=== PATIENT | male | born 1975 | race Caucasian/White ===

== ENCOUNTER 2017-01-13 16:30 | Emergency (ER) | payer OTHER, SELFPAY ==
[2017-01-13] MEDS ORDERED: LIDOCAINE VISCOUS 2% SOLN 15ML UDC As Ordered ONE (17:19)
[2017-01-13] MEDS ORDERED: NORCO, ANEXSIA 5/325MG TABLET (HYDROcodone/ACETAMINOPHEN) As Ordered ONE ×2 (17:19→17:27)
[2017-01-13] MEDS ORDERED: CLINDAMYCIN 150 MG CAP As Ordered ONE (17:19)
--- NOTE | 2017-01-13 17:33 | EDDOCDS ---
Physician Documentation [facility] Name: Fitz Chacon Age: 41 yrs Sex: Male : 1975 Arrival Date: 01/13/2017 Time: 16:30 Bed Triage 1 Private MD: NO PRIMARY PHYSICIAN, . Disposition: 01/13/17 17:14 Discharged to Home/Self Care. Impression: Cellulitis and abscess of mouth - dental abscess #19 tooth. - Condition is Stable. - Discharge Instructions: Dental Pain. - Prescriptions for Clindamycin HCl 300 mg Oral Capsule - take 1 capsule by ORAL route every 6 hours; 40 capsule. [place] 5- 325 mg Oral Tablet - take 1 tablet by ORAL route every 6 hours As needed MDD: 4 tabs; 20 tablet. magic mouthwash Mucous Membrane Solution - as directed 5 milliliters by ORAL route 3-4 times daily As needed gargle, swish, spit. Maalox, Liquid Benadryl, Viscous Lidocaine. 1:1:1; 237 milliliter. - Medication Reconciliation, Local Pharmacy Hours form. - Follow up: Emergency Department; When: As needed; Reason: Worsening of conditions. [facility]; When: Call to arrange an appointment; Reason: Recheck today's complaints, Continuance of care, To establish care. Follow up: [facility]; When: Call to arrange an appointment; Reason: Recheck today's complaints, Continuance of care, To establish care. - Problem is new. - Symptoms are unchanged. Historical: - Allergies: No known drug Allergies; - Home Meds: 1. ibuprofen 200 mg Oral cap 4 caps every 8 hours (Last dose: 01/13/2017 14:00) - PMHx: none; - PSHx: Hernia repair- Left inguinal; Tonsillectomy; - Social history: Smoking status: Patient uses tobacco products, heavy tobacco smoker. No barriers to communication noted, The patient speaks fluent Malagasy. - Family history: Not pertinent. - : The pt / caregiver states he / she is not on anticoagulants. Home medication list is obtained from the patient. - Exposure Risk Screening:: None identified. Vital Signs: 01/13 16:31 BP 113 / 67; Pulse 76; Resp 18 S; Temp 97.6(O); Pulse Ox 95% on R/A; Weight 88.45 kg / gr2 195 lbs (R); Height 6 ft. 0 in. (182.88 cm) (R); Pain 5/10; 16:31 Body Mass Index 26.45 (88.45 kg, 182.88 cm) gr2 MDM: 17:07 Financial registration complete. kf3 17:08 [facility] Payment Agreement was scanned into [employer] and attached to record. [id number] 17:12 Lidocaine Viscous Liquid 2 % 15 ml Mucous Membrane in affected area once; give to pt to dt4 take home. thank you. ordered. 17:12 Clindamycin 300 mg PO once ordered. dt4 17:12 HYDROcodone-acetaminophen 5 mg-325 mg 1 tabs PO once; give to pt to take home, thank dt4 you. ordered. 17:28 HYDROcodone-acetaminophen 5 mg-325 mg 1 tabs PO once ordered. dt4 Administered Medications: 17:29 Drug: HYDROcodone-acetaminophen 1 tabs [hydrocodone 5 mg-acetaminophen 325 mg tablet (1 srm tabs)] Route: PO; 17:30 Drug: Lidocaine Viscous 15 ml [Lidocaine Viscous 2 % mucosal solution (15 mL)] Route: srm Mucous Membrane; Site: affected area; 17:30 Drug: Clindamycin 300 mg [clindamycin 150 mg capsule (2 caps)] Route: PO; srm 17:30 Drug: HYDROcodone-acetaminophen 1 tabs [hydrocodone 5 mg-acetaminophen 325 mg tablet (1 srm tabs)] Route: PO; Signatures: Gisella Weinberg RN RN kpSkip Gallardo, Reg Reg kf3 June Singleton RN RN cjh Tschudi, Diane, PA-C PASadia dt4 Clara Rogers, Reg Reg ks16 Nelida Barakat RN srm The chart was reviewed and I authenticate all verbal orders and agree with the evaluation and treatment provided.Attachments: 17:08 [facility] Payment Agreement [email or web address] [facility]
--- NOTE | 2017-01-13 17:33 | EDDOCDS ---
Nurse's Notes [facility] Name: Fitz Chacon Age: 41 yrs Sex: Male : 1975 Arrival Date: 01/13/2017 Time: 16:30 Bed Triage 1 Private MD: NO PRIMARY PHYSICIAN, . Diagnosis: Cellulitis and abscess of mouth-dental abscess #19 tooth Presentation: 01/13 16:44 Presenting complaint: Patient states: lower dental pain left with facial swelling x 2 kpj dasy. Adult Sepsis Screening: The patient does not have new or worsening altered mentation. Patient's respiratory rate is less than 22. Systolic blood pressure is greater than 100. Patient has a qSOFA score of 0- Negative Sepsis Screen. Suicide/Homicide risk assessment- the patient denies having any suicidal and/or homicidal ideations and does not present with any other emotional, behavioral or mental health complaints. Status: Patient is not a rv servicer or dependent. Transition of care: patient was not received from another setting of care. 16:44 Acuity: NOBLE Level 4 [facility] 16:44 Method Of Arrival: Walkin/Carried/Asstd [facility] Triage Assessment: 16:47 General: Appears in no apparent distress, Behavior is appropriate for age, listless. [facility] Pain: Location: lower left third molar Pain currently is 5 out of 10 on a pain scale. Pt Declines HIV testing. Neurological: Level of Consciousness is awake, alert, Oriented to person, place, time. EENT: Poor dentition noted. left facial swelling. Respiratory: Airway is patent Respiratory effort is even, unlabored. Derm: Skin is pink, warm & dry. Historical: - Allergies: No known drug Allergies; - Home Meds: 1. ibuprofen 200 mg Oral cap 4 caps every 8 hours (Last dose: 01/13/2017 14:00) - PMHx: none; - PSHx: Hernia repair- Left inguinal; Tonsillectomy; - Social history: Smoking status: Patient uses tobacco products, heavy tobacco smoker. No barriers to communication noted, The patient speaks fluent Estonian. - Family history: Not pertinent. - : The pt / caregiver states he / she is not on anticoagulants. Home medication list is obtained from the patient. - Exposure Risk Screening:: None identified. Screenin:29 Screening information is obtained from the patient. Fall risk: No risks identified. [facility] Assistance ADL's: requires no assistance with activities of daily living. Abuse/DV Screen: The patient / caregiver reports he/she is: not in a situation that causes fear, pain or injury. Nutritional screening: No deficits noted. Advance Directives: There is no active DNR order. home support is adequate. Assessment: 17:29 General: Appears in no apparent distress, comfortable, Behavior is appropriate for age, cjh cooperative. Pain: Location: mouth and lower left third molar Pain currently is 8 out of 10 on a pain scale. Respiratory: Airway is patent Respiratory effort is even, unlabored, Respiratory pattern is regular, symmetrical. Derm: Skin is pink, warm & dry. Vital Signs: 16:31 BP 113 / 67; Pulse 76; Resp 18 S; Temp 97.6(O); Pulse Ox 95% on R/A; Weight 88.45 kg gr2 (R); Height 6 ft. 0 in. (182.88 cm) (R); Pain 5/10; 16:31 Body Mass Index 26.45 (88.45 kg, 182.88 cm) gr2 Vitals: 16:31 Log In Time: January 13, 2017 at 16:31. gr2 ED Course: 16:31 Patient visited by Jalen Coker. gr2 16:31 NO PRIMARY PHYSICIAN, . is Private Physician. gr2 16:31 Patient moved to Waiting gr2 16:33 Patient visited by Jalen Coker. gr2 16:33 Patient moved to Pre RCE gr2 16:45 Triage Initiated [facility] 16:49 Patient moved to Triage 1 [facility] 17:01 [facility] dt4 17:01 Keyur Holt MD is Attending Physician. dt4 17:01 Patient visited by Graciela Eagle PA-C. dt4 17:08 REPLACED BY [facility] Payment Agreement was scanned into [employer] and attached to record. [id number] 17:13 [facility] is Referral Physician. dt4 17:13 [facility] is Referral Physician. dt4 17:29 The patient / caregiver is instructed regarding the plan of care and ED course. cjh 17:29 No IV's were initiated during this patient's visit. No procedures done that require [facility] assistance. Administered Medications: 17:29 Drug: HYDROcodone-acetaminophen 1 tabs [hydrocodone 5 mg-acetaminophen 325 mg tablet (1 srm tabs)] Route: PO; 17:30 Drug: Lidocaine Viscous 15 ml [Lidocaine Viscous 2 % mucosal solution (15 mL)] Route: srm Mucous Membrane; Site: affected area; 17:30 Drug: Clindamycin 300 mg [clindamycin 150 mg capsule (2 caps)] Route: PO; srm 17:30 Drug: HYDROcodone-acetaminophen 1 tabs [hydrocodone 5 mg-acetaminophen 325 mg tablet (1 srm tabs)] Route: PO; Order Results: There are currently no results for this order. Outcome: 17:14 Discharge ordered by Provider. dt4 17:29 Discharge Assessment: Patient awake, alert and oriented x 3. No cognitive and/or [facility] functional deficits noted. Patient verbalized understanding of disposition instructions. patient administered narcotics - no. The following High Risk Discharge criteria are identified: None. Discharged to home ambulatory, with significant other. Condition: good Condition: stable Condition: improved. Discharge instructions given to patient, Instructed on discharge instructions, follow up and referral plans. medication usage, no driving heavy equipment, no drinking with medication, Demonstrated understanding of instructions, medications, Pt was receptive of discharge instructions/ teaching. Prescriptions given X 3. No special radiology studies were completed. Property :Personal belongings accompany Pt. 17:33 Patient left the ED. [facility] Signatures: Gisella Weinberg RN RN Nelida Mace RN RN [facility] June Singleton RN RN [facility] Jalen Coker gr2 Graciela Eagle PA-C PA-C dt4 Clara Rogers, Reg Reg ks16 MTDD
--- NOTE | 2017-01-15 18:33 | EDDOCDS ---
Physician Documentation [facility] Name: Fitz Chacon Age: 41 yrs Sex: Male : 1975 Arrival Date: 01/13/2017 Time: 16:30 Bed Triage 1 Private MD: NO PRIMARY PHYSICIAN, . Disposition: 01/13/17 17:14 Discharged to Home/Self Care. Impression: Cellulitis and abscess of mouth - dental abscess #19 tooth. - Condition is Stable. - Discharge Instructions: Dental Pain. - Prescriptions for Clindamycin HCl 300 mg Oral Capsule - take 1 capsule by ORAL route every 6 hours; 40 capsule. [place] 5- 325 mg Oral Tablet - take 1 tablet by ORAL route every 6 hours As needed MDD: 4 tabs; 20 tablet. magic mouthwash Mucous Membrane Solution - as directed 5 milliliters by ORAL route 3-4 times daily As needed gargle, swish, spit. Maalox, Liquid Benadryl, Viscous Lidocaine. 1:1:1; 237 milliliter. - Medication Reconciliation, Local Pharmacy Hours form. - Follow up: Emergency Department; When: As needed; Reason: Worsening of conditions. [facility]: [facility]; When: Call to arrange an appointment; Reason: Recheck today's complaints, Continuance of care, To establish care. Follow up: [facility]; When: Call to arrange an appointment; Reason: Recheck today's complaints, Continuance of care, To establish care. - Problem is new. - Symptoms are unchanged. Historical: - Allergies: No known drug Allergies; - Home Meds: 1. ibuprofen 200 mg Oral cap 4 caps every 8 hours (Last dose: 01/13/2017 14:00) - PMHx: none; - PSHx: Hernia repair- Left inguinal; Tonsillectomy; - Social history: Smoking status: Patient uses tobacco products, heavy tobacco smoker. No barriers to communication noted, The patient speaks fluent Cook Islander. - Family history: Not pertinent. - : The pt / caregiver states he / she is not on anticoagulants. Home medication list is obtained from the patient. - Exposure Risk Screening:: None identified. Vital Signs: 01/13 16:31 BP 113 / 67; Pulse 76; Resp 18 S; Temp 97.6(O); Pulse Ox 95% on R/A; Weight 88.45 kg / gr2 195 lbs (R); Height 6 ft. 0 in. (182.88 cm) (R); Pain 5/10; 16:31 Body Mass Index 26.45 (88.45 kg, 182.88 cm) gr2 MDM: 17:07 Financial registration complete. kf3 17:08 [facility] Payment Agreement was scanned into [employer] and attached to record. ks16 17:12 Lidocaine Viscous Liquid 2 % 15 ml Mucous Membrane in affected area once; give to pt to dt4 take home. thank you. ordered. 17:12 Clindamycin 300 mg PO once ordered. dt4 17:12 HYDROcodone-acetaminophen 5 mg-325 mg 1 tabs PO once; give to pt to take home, thank dt4 you. ordered. 17:28 HYDROcodone-acetaminophen 5 mg-325 mg 1 tabs PO once ordered. dt4 01/14 17:38 T-Sheet-- Draft Copy was scanned into [employer] and attached to record. klr Administered Medications: 01/13 17:29 Drug: HYDROcodone-acetaminophen 1 tabs [hydrocodone 5 mg-acetaminophen 325 mg tablet (1 srm tabs)] Route: PO; 17:30 Drug: Lidocaine Viscous 15 ml [Lidocaine Viscous 2 % mucosal solution (15 mL)] Route: srm Mucous Membrane; Site: affected area; 17:30 Drug: Clindamycin 300 mg [clindamycin 150 mg capsule (2 caps)] Route: PO; srm 17:30 Drug: HYDROcodone-acetaminophen 1 tabs [hydrocodone 5 mg-acetaminophen 325 mg tablet (1 srm tabs)] Route: PO; Signatures: Gisella Weinberg RN RN kpj Fiddler, Kris, Reg Reg kf3 June Singleton RN RN [facility] Graciela Eagle, PASadia PAChrisC dt4 Clara Rogers, Reg Reg ks16 Ofe Chatman klr Nelida Barakat RN [facility] The chart was reviewed and I authenticate all verbal orders and agree with the evaluation and treatment provided.Attachments: 17:08 [facility] Payment Agreement ks16 01/14 17:38 T-Sheet-- Draft Copy klr Chart Complete MTDD
--- NOTE | 2017-01-15 18:33 | EDDOCDS ---
Physician Documentation [facility] Name: Fitz Chacon Age: 41 yrs Sex: Male : 1975 Arrival Date: 01/13/2017 Time: 16:30 Bed Triage 1 Private MD: NO PRIMARY PHYSICIAN, . Disposition: 01/13/17 17:14 Discharged to Home/Self Care. Impression: Cellulitis and abscess of mouth - dental abscess #19 tooth. - Condition is Stable. - Discharge Instructions: Dental Pain. - Prescriptions for Clindamycin HCl 300 mg Oral Capsule - take 1 capsule by ORAL route every 6 hours; 40 capsule. [place] 5- 325 mg Oral Tablet - take 1 tablet by ORAL route every 6 hours As needed MDD: 4 tabs; 20 tablet. magic mouthwash Mucous Membrane Solution - as directed 5 milliliters by ORAL route 3-4 times daily As needed gargle, swish, spit. Maalox, Liquid Benadryl, Viscous Lidocaine. 1:1:1; 237 milliliter. - Medication Reconciliation, Local Pharmacy Hours form. - Follow up: Emergency Department; When: As needed; Reason: Worsening of conditions. Follow up: [facility]; When: Call to arrange an appointment; Reason: Recheck today's complaints, Continuance of care, To establish care. Follow up: [facility]; When: Call to arrange an appointment; Reason: Recheck today's complaints, Continuance of care, To establish care. - Problem is new. - Symptoms are unchanged. Historical: - Allergies: No known drug Allergies; - Home Meds: 1. ibuprofen 200 mg Oral cap 4 caps every 8 hours (Last dose: 01/13/2017 14:00) - PMHx: none; - PSHx: Hernia repair- Left inguinal; Tonsillectomy; - Social history: Smoking status: Patient uses tobacco products, heavy tobacco smoker. No barriers to communication noted, The patient speaks fluent Tuvaluan. - Family history: Not pertinent. - : The pt / caregiver states he / she is not on anticoagulants. Home medication list is obtained from the patient. - Exposure Risk Screening:: None identified. Vital Signs: 01/13 16:31 BP 113 / 67; Pulse 76; Resp 18 S; Temp 97.6(O); Pulse Ox 95% on R/A; Weight 88.45 kg / gr2 195 lbs (R); Height 6 ft. 0 in. (182.88 cm) (R); Pain 5/10; 16:31 Body Mass Index 26.45 (88.45 kg, 182.88 cm) gr2 MDM: 17:07 Financial registration complete. kf3 17:08 [facility] Payment Agreement was scanned into [employer] and attached to record. ks16 17:12 Lidocaine Viscous Liquid 2 % 15 ml Mucous Membrane in affected area once; give to pt to dt4 take home. thank you. ordered. 17:12 Clindamycin 300 mg PO once ordered. dt4 17:12 HYDROcodone-acetaminophen 5 mg-325 mg 1 tabs PO once; give to pt to take home, thank dt4 you. ordered. 17:28 HYDROcodone-acetaminophen 5 mg-325 mg 1 tabs PO once ordered. dt4 01/14 17:38 T-Sheet-- Draft Copy was scanned into [employer] and attached to record. klr Administered Medications: 01/13 17:29 Drug: HYDROcodone-acetaminophen 1 tabs [hydrocodone 5 mg-acetaminophen 325 mg tablet (1 srm tabs)] Route: PO; 17:30 Drug: Lidocaine Viscous 15 ml [Lidocaine Viscous 2 % mucosal solution (15 mL)] Route: srm Mucous Membrane; Site: affected area; 17:30 Drug: Clindamycin 300 mg [clindamycin 150 mg capsule (2 caps)] Route: PO; srm 17:30 Drug: HYDROcodone-acetaminophen 1 tabs [hydrocodone 5 mg-acetaminophen 325 mg tablet (1 srm tabs)] Route: PO; Signatures: Gisella Weinberg RN RN kpj Fiddler, Kris, Reg Reg kf3 June Singleton RN RN [facility] Graciela Eagle, PASadia PAChrisC dt4 Clara Rogers, Reg Reg ks16 Ofe Chatman klr Nelida Barakat RN [facility] The chart was reviewed and I authenticate all verbal orders and agree with the evaluation and treatment provided.Attachments: 17:08 [facility] Payment Agreement [email or web address] 01/14 17:38 T-Sheet-- Draft Copy klr Chart Complete MTDD
--- NOTE | 2017-01-15 18:33 | EDDOCDS ---
Nurse's Notes [facility] Name: Fitz Chacon Age: 41 yrs Sex: Male : 1975 Arrival Date: 01/13/2017 Time: 16:30 Bed Triage 1 Private MD: NO PRIMARY PHYSICIAN, . Diagnosis: Cellulitis and abscess of mouth-dental abscess #19 tooth Presentation: 01/13 16:44 Presenting complaint: Patient states: lower dental pain left with facial swelling x 2 kpj dasy. Adult Sepsis Screening: The patient does not have new or worsening altered mentation. Patient's respiratory rate is less than 22. Systolic blood pressure is greater than 100. Patient has a qSOFA score of 0- Negative Sepsis Screen. Suicide/Homicide risk assessment- the patient denies having any suicidal and/or homicidal ideations and does not present with any other emotional, behavioral or mental health complaints. Status: Patient is not a rehabilitation services manager or dependent. Transition of care: patient was not received from another setting of care. 16:44 Acuity: NOBLE Level 4 [facility] 16:44 Method Of Arrival: Walkin/Carried/Asstd [facility] Triage Assessment: 16:47 General: Appears in no apparent distress, Behavior is appropriate for age, listless. [facility] Pain: Location: lower left third molar Pain currently is 5 out of 10 on a pain scale. Pt Declines HIV testing. Neurological: Level of Consciousness is awake, alert, Oriented to person, place, time. EENT: Poor dentition noted. left facial swelling. Respiratory: Airway is patent Respiratory effort is even, unlabored. Derm: Skin is pink, warm & dry. Historical: - Allergies: No known drug Allergies; - Home Meds: 1. ibuprofen 200 mg Oral cap 4 caps every 8 hours (Last dose: 01/13/2017 14:00) - PMHx: none; - PSHx: Hernia repair- Left inguinal; Tonsillectomy; - Social history: Smoking status: Patient uses tobacco products, heavy tobacco smoker. No barriers to communication noted, The patient speaks fluent [place] Islander. - Family history: Not pertinent. - : The pt / caregiver states he / she is not on anticoagulants. Home medication list is obtained from the patient. - Exposure Risk Screening:: None identified. Screenin:29 Screening information is obtained from the patient. Fall risk: No risks identified. [facility] Assistance ADL's: requires no assistance with activities of daily living. Abuse/DV Screen: The patient / caregiver reports he/she is: not in a situation that causes fear, pain or injury. Nutritional screening: No deficits noted. Advance Directives: There is no active DNR order. home support is adequate. Assessment: 17:29 General: Appears in no apparent distress, comfortable, Behavior is appropriate for age, cjh cooperative. Pain: Location: mouth and lower left third molar Pain currently is 8 out of 10 on a pain scale. Respiratory: Airway is patent Respiratory effort is even, unlabored, Respiratory pattern is regular, symmetrical. Derm: Skin is pink, warm & dry. Vital Signs: 16:31 BP 113 / 67; Pulse 76; Resp 18 S; Temp 97.6(O); Pulse Ox 95% on R/A; Weight 88.45 kg gr2 (R); Height 6 ft. 0 in. (182.88 cm) (R); Pain 5/10; 16:31 Body Mass Index 26.45 (88.45 kg, 182.88 cm) gr2 Vitals: 16:31 Log In Time: January 13, 2017 at 16:31. gr2 ED Course: 16:31 Patient visited by Jalen Coker. gr2 16:31 NO PRIMARY PHYSICIAN, . is Private Physician. gr2 16:31 Patient moved to Waiting gr2 16:33 Patient visited by Jlaen Coker. gr2 16:33 Patient moved to Pre RCE gr2 16:45 Triage Initiated [facility] 16:49 Patient moved to Triage 1 [facility] 17:01 [facility] dt4 17:01 Keyur Holt MD is Attending Physician. dt4 17:01 Patient visited by Graciela Eagle PA-C. dt4 17:08 [facility] Payment Agreement was scanned into [employer] and attached to record. ks16 17:13 [facility] is Referral Physician. dt4 17:13 [facility] is Referral Physician. dt4 17:29 The patient / caregiver is instructed regarding the plan of care and ED course. cj 17:29 No IV's were initiated during this patient's visit. No procedures done that require [facility] assistance. 01/14 17:38 T-Sheet-- Draft Copy was scanned into [employer] and attached to record. klr Administered Medications: 01/13 17:29 Drug: HYDROcodone-acetaminophen 1 tabs [hydrocodone 5 mg-acetaminophen 325 mg tablet (1 srm tabs)] Route: PO; 17:30 Drug: Lidocaine Viscous 15 ml [Lidocaine Viscous 2 % mucosal solution (15 mL)] Route: srm Mucous Membrane; Site: affected area; 17:30 Drug: Clindamycin 300 mg [clindamycin 150 mg capsule (2 caps)] Route: PO; srm 17:30 Drug: HYDROcodone-acetaminophen 1 tabs [hydrocodone 5 mg-acetaminophen 325 mg tablet (1 srm tabs)] Route: PO; Order Results: There are currently no results for this order. Outcome: 17:14 Discharge ordered by Provider. dt4 17:29 Discharge Assessment: Patient awake, alert and oriented x 3. No cognitive and/or [facility] functional deficits noted. Patient verbalized understanding of disposition instructions. patient administered narcotics - no. The following High Risk Discharge criteria are identified: None. Discharged to home ambulatory, with significant other. Condition: good Condition: stable Condition: improved. Discharge instructions given to patient, Instructed on discharge instructions, follow up and referral plans. medication usage, no driving heavy equipment, no drinking with medication, Demonstrated understanding of instructions, medications, Pt was receptive of discharge instructions/ teaching. Prescriptions given X 3. No special radiology studies were completed. Property :Personal belongings accompany Pt. 17:33 Patient left the ED. [facility] Signatures: Gisella Weinberg RN RN [facility] Nelida Barakat RN RN [facility] June Singleton RN RN [facility] Jalen Coker gr2 Graciela Eagle PA-C PASadia dt4 Clara Rogers, Reg Reg ks16 Ofe Chatman shelly Chart Complete MTDD
== END 2017-01-13 17:33 | disposition home or self-care (01) ==
LOC: M ED 16:30
DX: K04.7 Periapical abscess without sinus (principal); F17.200 Nicotine dependence, unspecified, uncomplicated

== ENCOUNTER 2018-07-31 09:19 | Emergency (ER) | payer SELFPAY | END 2018-07-31 10:06 | disposition home or self-care (01) | LOC: M ED 09:19 | DX: K04.7 Periapical abscess without sinus (principal); K02.9 Dental caries, unspecified; F17.200 Nicotine dependence, unspecified, uncomplicated | CPT/HCPCS: 99282 ==

== ENCOUNTER 2018-09-18 12:02 | Emergency (ER) | payer SELFPAY | END 2018-09-18 13:53 | disposition left against medical advice (07) | LOC: M ED 12:02 | DX: R22.0 Localized swelling, mass and lump, head (principal); Z53.21 Procedure and treatment not carried out due to patient leaving prior to being seen by health care provider ==

== ENCOUNTER 2018-09-18 20:57 | Emergency (ER) | payer SELFPAY ==
[2018-09-18] MEDS: CLINDAMYCIN 150 MG CAP PO (22:00)
[2018-09-18] MEDS: LIDOCAINE VISCOUS 2% SOLN 15ML UDC SSP (22:00)
== END 2018-09-18 22:10 | disposition home or self-care (01) ==
LOC: M ED 20:57
DX: K05.30 Chronic periodontitis, unspecified (principal); K02.9 Dental caries, unspecified; Z72.0 Tobacco use
CPT/HCPCS: 99282

== ENCOUNTER 2019-05-17 09:06 | Emergency (ER) | payer OTHER, SELFPAY ==
[~2019-05-17] VITALS: Ht 182.9 cm; Wt 81.8 kg
[~2019-05-17 09:06] MED LIST: CLEO300C2 PO; HYDR-3713 PO; IBUP-1022 PO; IBUP200T45 PO; LIDO1SOL8 SSP; PENI500T PO
[2019-05-17] MEDS ORDERED: FLUORESCEIN OPHTH 1 MG STRIP OS ONE (09:30)
[2019-05-17] MEDS ORDERED: TETRACAINE 0.5% OPHTH SOLN 4ML OS ONE (09:30)
[2019-05-17] MEDS ORDERED: ERYT1OIN26 OD (09:53)
[2019-05-17] MEDS ORDERED: ERYTHROMYCIN OPHTH OINT OD ONE (10:00)
[2019-05-17 10:29] VITALS: BP 121/84
== END 2019-05-17 10:40 | disposition home or self-care (01) ==
LOC: M ED 09:06
DX: S05.02XA Injury of conjunctiva and corneal abrasion without foreign body, left eye, initial encounter (principal); X58.XXXA Exposure to other specified factors, initial encounter; Y92.89 Other specified places as the place of occurrence of the external cause

== ENCOUNTER → 2020-11-19 | Outpatient (CLI) | payer OTHER ==
[~2020-11-19] MED LIST changes: +ERYT5OIN25 OD; -LIDO1SOL8 SSP; +LIDO2SOL17 SSP
[2020-11-19 08:21] LABS: HEMATOCRIT 47.1 % (42.0-52.0); HEMOGLOBIN 15.7 g/dl (13.5-17.5); MEAN CORPUSCULAR HEMOGLOBIN 30.3 pg (27.0-33.0); MEAN CORPUSCULAR HGB CONC 33.3 g/dl (32.0-36.5); MEAN CORPUSCULAR VOLUME 90.9 fl (80.0-96.0); PLATELET COUNT, AUTOMATED 266 10^3/uL (150-450); RED BLOOD COUNT 5.18 10^6/uL (4.30-6.10); WHITE BLOOD COUNT 9.5 10^3/uL (4.0-10.0)
[2020-11-19 08:52] LABS: ALT/SGPT 42 U/L (12-78); BILIRUBIN,TOTAL 0.4 MG/DL (0.2-1.0); BLOOD UREA NITROGEN 11 MG/DL (7-18); CALCIUM LEVEL 8.6 MG/DL (8.5-10.1); CARBON DIOXIDE LEVEL 28 MEQ/L (21-32); CHLORIDE LEVEL 107 MEQ/L (98-107); CHOLESTEROL LEVEL 217 MG/DL (<200); CREATININE FOR GFR 1.13 MG/DL (0.70-1.30); FREE T4 0.84 NG/DL (0.76-1.46); GLOMERULAR FILTRATION RATE > 60.0 (>60); GLUCOSE, FASTING 102 MG/DL (70-100); HDL CHOLESTEROL 28 MG/DL (>40); LDL CHOLESTEROL 162 MG/DL (<100); NON-HDL-C 189 MG/DL; POTASSIUM SERUM 4.1 MEQ/L (3.5-5.1); SODIUM LEVEL 142 MEQ/L (136-145); TOTAL PROTEIN 7.8 GM/DL (6.4-8.2); TRIGLYCERIDES LEVEL 135 MG/DL (<150)
[2020-11-19 09:25] LABS: HEMOGLOBIN A1c 5.9 %
[2020-11-20 15:09] LABS: TESTOSTERONE FREE (DIRECT) 11.2 pg/mL (6.8-21.5)
== END ==
LOC: M LAB 07:51
PROVIDERS: ATTEND Physician Assistant
DX: R53.83 Other fatigue (principal); J44.9 Chronic obstructive pulmonary disease, unspecified; Z13.1 Encounter for screening for diabetes mellitus; E78.2 Mixed hyperlipidemia; N52.9 Male erectile dysfunction, unspecified

== ENCOUNTER → 2021-03-30 | Outpatient (REF) | payer OTHER ==
[2021-03-30 17:48] LABS: BASO # 0.1 10^3/uL (0.0-0.2); BASO % 0.5 % (0.0-1.0); EOS # 0.2 10^3/uL (0.0-0.5); EOS % 1.4 % (0.0-3.0); HEMOGLOBIN 15.7 g/dl (13.5-17.5); LYMPH # 2.3 10^3/uL (1.5-5.0); LYMPH % 21.7 % (24.0-44.0); MEAN CORPUSCULAR HEMOGLOBIN 30.7 pg (27.0-33.0); MEAN CORPUSCULAR HGB CONC 33.4 g/dl (32.0-36.5); MEAN CORPUSCULAR VOLUME 91.8 fl (80.0-96.0); MONO # 0.7 10^3/uL (0.0-0.8); NEUTROPHILS # 7.2 10^3/uL (1.5-8.5); NEUTROPHILS % 69.1 % (36.0-66.0); PLATELET COUNT, AUTOMATED 227 10^3/uL (150-450); RED BLOOD COUNT 5.12 10^6/uL (4.30-6.10); WHITE BLOOD COUNT 10.5 10^3/uL (4.0-10.0)
[2021-03-30 18:09] LABS: HEMOGLOBIN A1c 5.8 %
[2021-03-30 18:12] LABS: ALBUMIN 4.2 GM/DL (3.2-5.2); ALT/SGPT 42 U/L (12-78); BILIRUBIN,TOTAL 0.3 MG/DL (0.2-1.0); BLOOD UREA NITROGEN 12 MG/DL (7-18); CALCIUM LEVEL 8.4 MG/DL (8.5-10.1); CARBON DIOXIDE LEVEL 24 MEQ/L (21-32); CHLORIDE LEVEL 108 MEQ/L (98-107); CHOLESTEROL LEVEL 204 MG/DL (<200); CHOLESTEROL RISK RATIO 7.555 (<5); CREATININE FOR GFR 1.18 MG/DL (0.70-1.30); GLOMERULAR FILTRATION RATE > 60.0 (>60); GLUCOSE, FASTING 87 MG/DL (70-100); HDL CHOLESTEROL 27 MG/DL (>40); LDL CHOLESTEROL 139 MG/DL (<100); NON-HDL-C 177 MG/DL; POTASSIUM SERUM 4.5 MEQ/L (3.5-5.1); SODIUM LEVEL 138 MEQ/L (136-145); TRIGLYCERIDES LEVEL 192 MG/DL (<150)
== END ==
LOC: M LAB REF 16:41
PROVIDERS: ATTEND Pediatrics
DX: E78.5 Hyperlipidemia, unspecified (principal); E88.81 Metabolic syndrome and other insulin resistance

== ENCOUNTER → 2021-10-19 | Outpatient (CLI) | payer OTHER | LOC: M CARPUL 09:33 | PROVIDERS: ATTEND Pediatrics | DX: J44.9 Chronic obstructive pulmonary disease, unspecified (principal); F17.200 Nicotine dependence, unspecified, uncomplicated; Z53.8 Procedure and treatment not carried out for other reasons ==